=== PATIENT | male | born 1960 | race Caucasian/White ===

== ENCOUNTER 2021-03-15 07:29 | Emergency (ER) | payer OTHER ==
[~2021-03-15] VITALS: Ht 175.3 cm; Wt 90.9 kg
[2021-03-15 07:29] VITALS: BP 123/66
[2021-03-15] MEDS ORDERED: ASPIRIN CHEWABLE 81 MG TABLET. PO ONE (08:00)
--- NOTE | 2021-03-15 08:16 | RAD ---
XR CHEST 1V CLINICAL INDICATIONS: Reason: chest pain / Spl. Instructions: / History: COMPARISON: None available. Findings: No acute lung infiltrate or pleural effusion or pulmonary edema or lung mass or pneumothora x is seen. The heart size, pulmonary vasculature, mediastinum and both joann are unremarkable. Old he aled posterior right rib cage fractures are evident. IMPRESSION: No acute radiographic abnormality is seen. Electronically signed by: Rigo Mcneal MD (03/15/2021 8:13 AM) [id number]
--- NOTE | 2021-03-15 08:19 | ED.ADGEN ---
Past Medical History Additional Past Medical Histor: BACK PAIN,PTSD Past Surgical History: No Surgical History General Adult EDM: Chief Complaint: CHEST PAIN HPI: HPI: Patient is a 60 year old male coming in via EMS for chest pain. Patient describes the pain as feeling like someone is sitting on his chest. Pain began radiating to his left arm. Had 2 episodes of his chest pressure but is gone now. First time was after waking up at 3 AM, and then it went away. [place] that again at 6 AM. Patient states that the time he also felt nauseous and had cold sweats. Had a couple episodes of the pain last week. Patient states he had a normal stress test 4 to 5 years ago. Has a history of dyslipidemia, hypertension. Patient smokes about 1.5 packs of cigarettes daily, denies any alcohol or drugs. Denies any cardiac history Review of Systems: Review of Systems: All other systems within normal limits except for as noted in the HPI Current Medications: Current Medications Medications (Trade) Dose Ordered Sig/José Luis Start Time Stop Time Status Last Admin Dose Admin Aspirin (Aspirin Chewable) 324 mg 1X ONCE 03/15/21 08:00 03/15/21 08:01 DC Allergies: Allergies: Allergies Uncoded Allergies Type Severity Reaction Last Updated Verified BEE STINGS Allergy Unknown UNKNOWN 03/15/21 WASP STINGS Allergy Unknown UNKNOWN 03/15/21 Physical Exam: PE: Constitutional: Well developed, well nourished, no acute distress, non-toxic appearance. [] HENT: Normocephalic, atraumatic, bilateral external ears normal, nose normal. [] Eyes: PERRLA, conjunctiva normal, no discharge. [] Neck: No rigidity, supple, no stridor. [] Cardiovascular: Regular rate and rhythm, brisk cap refill [] Lungs & Thorax: Non labored symmetric respirations, no tachypnea or respiratory distress [] Abdomen: Soft, nondistended. Skin: Warm, dry, no erythema, no rash. [] Back: Unremarkable Extremities: No deformities, range of motion grossly intact, no lower extremity edema [] Neurologic: Alert and oriented X 3, no focal deficits noted. [] Psychologic: Affect normal, judgement normal, mood normal. [] Current Patient Data: Labs: Laboratory Tests Test 03/15/21 08:21 White Blood Count 8.2 x10^3/uL (4.0-11.0) Red Blood Count 4.56 x10^6/uL (4.30-5.70) Hemoglobin 14.8 g/dL (13.0-17.5) Hematocrit 43.8 % (39.0-53.0) Mean Corpuscular Volume 96 fL (79-100) Mean Corpuscular Hemoglobin 33 pg (25-35) Mean Corpuscular Hemoglobin Concent 34 g/dL (31-37) Red Cell Distribution Width 13.3 % (11.5-14.5) Platelet Count 190 x10^3/uL (140-400) Neutrophils (%) (Auto) 77 % (31-73) H Lymphocytes (%) (Auto) 15 % (24-48) L Monocytes (%) (Auto) 6 % (0-9) Eosinophils (%) (Auto) 1 % (0-3) Basophils (%) (Auto) 1 % (0-3) Neutrophils # (Auto) 6.3 x10^3/uL (1.8-7.7) Lymphocytes # (Auto) 1.2 x10^3/uL (1.0-4.8) Monocytes # (Auto) 0.5 x10^3/uL (0.0-1.1) Eosinophils # (Auto) 0.1 x10^3/uL (0.0-0.7) Basophils # (Auto) 0.1 x10^3/uL (0.0-0.2) Sodium Level 142 mmol/L (136-145) Potassium Level 4.1 mmol/L (3.5-5.1) Chloride Level 107 mmol/L (98-107) Carbon Dioxide Level 25 mmol/L (21-32) Anion Gap 10 (6-14) Blood Urea Nitrogen 12 mg/dL (8-26) Creatinine 1.0 mg/dL (0.7-1.3) Estimated GFR (Cockcroft-Gault) 76.2 BUN/Creatinine Ratio 12 (6-20) Glucose Level 105 mg/dL (70-99) H Calcium Level 8.7 mg/dL (8.5-10.1) Phosphorus Level 3.0 mg/dL (2.6-4.7) Magnesium Level 1.9 mg/dL (1.8-2.4) Total Bilirubin 0.3 mg/dL (0.2-1.0) Aspartate Amino Transferase (AST) 12 U/L (15-37) L Alanine Aminotransferase (ALT) 21 U/L (16-63) Alkaline Phosphatase 58 U/L (46-116) Troponin I Quantitative 0.108 ng/mL (0.000-0.055) NK-Kkv-R-Type Natriuretic Peptide 211 pg/mL (0-124) H Total Protein 6.7 g/dL (6.4-8.2) Albumin 3.3 g/dL (3.4-5.0) L Albumin/Globulin Ratio 1.0 (1.0-1.7) Lipase 119 U/L (73-393) Ethyl Alcohol Level < 10 mg/dL (0-10) Laboratory Tests 03/15/21 08:21 Laboratory Tests 03/15/21 08:21 Vital Signs: Vital Signs Date Time Temp Pulse Resp B/P (MAP) Pulse Ox O2 Delivery O2 Flow Rate FiO2 03/15/21 07:29 97.0 61 18 123/66 (85) 96 Room Air 97.0 EKG: EKG: Sinus rhythm with left bundle branch block that is new from 11/2011[] Heart Score: C/O Chest Pain: Yes HEART Score for Chest Pain: HEART Score for Chest Pain Response (Comments) Value History Highly Suspicious 2 ECG Nonspecific Repolarizatio 1 Age >45 - < 65 1 Risk Factors >3 Risk Factors or Hx CAD 2 Troponin >3 x Normal Limit 2 Total 8 Risk Factors: Risk Factors: DM, Current or recent (<one month) smoker, HTN, HLP, family history of CAD, obesity. Risk Scores: Score 0 - 3: 2.5% MACE over next 6 weeks - Discharge Home Score 4 - 6: 20.3% MACE over next 6 weeks - Admit for Clinical Observation Score 7 - 10: 72.7% MACE over next 6 weeks - Early Invasive Strategies Radiology/Procedures: Radiology/Procedures: [facility] [address] [place] [address] IMAGING REPORT Signed PATIENT: MIRANDA CALVERT ACCOUNT: [id number] : 1960 LOCATION: ER AGE: 60 SEX: M EXAM STATUS: REG ER ORD. PHYSICIAN: LOLY PELAEZ MD REASON: chest pain PROCEDURE: CHEST AP ONLY XR CHEST 1V CLINICAL INDICATIONS: Reason: chest pain / Spl. Instructions: / History: COMPARISON: None available. Findings: No acute lung infiltrate or pleural effusion or pulmonary edema or lung mass or pneumothorax is seen. The heart size, pulmonary vasculature, mediastinum and both joann are unremarkable. Old healed posterior right rib cage fractures are evident. IMPRESSION: No acute radiographic abnormality is seen. Electronically signed by: Dixie Mcneal MD (03/15/2021 8:13 AM) [id number] DICTATED and SIGNED BY: DIXIE MCNEAL MD DATE: 03/15/21 [id number] [] Course & Med Decision Making: Course & Med Decision Making Pertinent Labs and Imaging studies reviewed. (See chart for details) Patient stated able to leave AMA because he is not allowed to smoke. Hospitalist has been consulted for admission. Patient is not vaccinated also refusing Covid swab [] Dragon Disclaimer: Dragon Disclaimer: This electronic medical record was generated, in whole or in part, using a voice recognition dictation system. Departure Departure Impression: Primary Impression: Chest pain Disposition: LEFT AGAINST MEDICAL ADVICE Condition: GUARDED Referrals: NO PCP (PCP) LOLY PELAEZ MD Mar 15, 2021 08:19
[2021-03-15 08:29] LABS: BASO # 0.1 x10^3/uL (0.0-0.2); BASO % 1 % (0-3); EOS # 0.1 x10^3/uL (0.0-0.7); EOS % 1 % (0-3); HEMATOCRIT 43.8 % (39.0-53.0); HEMOGLOBIN 14.8 g/dL (13.0-17.5); LYMPH # 1.2 x10^3/uL (1.0-4.8); LYMPH % 15 % (24-48); MEAN CORPUSCULAR HEMOGLOBIN 33 pg (25-35); MEAN CORPUSCULAR HGB CONC 34 g/dL (31-37); MEAN CORPUSCULAR VOLUME 96 fL (79-100); MONO # 0.5 x10^3/uL (0.0-1.1); MONO % 6 % (0-9); NEUT # 6.3 x10^3/uL (1.8-7.7); NEUT % 77 % (31-73); PLATELET COUNT 190 x10^3/uL (140-400); RED BLOOD COUNT 4.56 x10^6/uL (4.30-5.70); RED CELL DISTRIBUTION WIDTH 13.3 % (11.5-14.5); WHITE BLOOD COUNT 8.2 x10^3/uL (4.0-11.0)
[2021-03-15 08:48] LABS: CALCIUM 8.7 mg/dL (8.5-10.1); GFR 76.2; POTASSIUM 4.1 mmol/L (3.5-5.1)
[2021-03-15 08:54] LABS: ALBUMIN 3.3 g/dL (3.4-5.0); MAGNESIUM 1.9 mg/dL (1.8-2.4); TOTAL BILIRUBIN 0.3 mg/dL (0.2-1.0); TOTAL PROTEIN 6.7 g/dL (6.4-8.2)
[2021-03-17] MEDS ORDERED: LOSA25TA54 PO (12:19)
[2021-03-17] MEDS ORDERED: ATOR40TA59 PO (12:19)
[2021-03-17] MEDS ORDERED: ASPI-886 PO (12:19)
[2021-03-17] MEDS ORDERED: PRAS10TA10 PO (12:19)
== END 2021-03-15 09:43 | disposition left against medical advice (07) ==
LOC: ER 07:29
DX: R07.89 Other chest pain (principal); R11.0 Nausea; M79.602 Pain in left arm; F43.10 Post-traumatic stress disorder, unspecified; Z91.030 Bee allergy status
CPT/HCPCS: 36415; 71045; 80053; 83690; 83735; 83880; 84100; 84484; 85025; 99285; G0480